=== PATIENT | male | born 1965 | race Caucasian/White ===

== ENCOUNTER 2023-10-09 08:08 | Day surgery (SDC) | payer OTHER ==
[~2023-10-09] VITALS: Ht 177.8 cm; Wt 77.2 kg
[2023-10-09 10:51] VITALS: BP 130/95
== END 2023-10-09 11:00 | disposition home or self-care (01) ==
LOC: ORSCMMR 08:08 → ORD 09:00 → ORSCMMR 09:00
PROC: 0DBN8ZX Excision of Sigmoid Colon, Via Natural or Artificial Opening Endoscopic, Diagnostic (ICD-10-PCS; principal; 2023-10-09)
PROC: 3E0H8KZ Introduction of Other Diagnostic Substance into Lower GI, Via Natural or Artificial Opening Endoscopic (ICD-10-PCS; principal; 2023-10-09)
PROC: 0DBH8ZX Excision of Cecum, Via Natural or Artificial Opening Endoscopic, Diagnostic (ICD-10-PCS; principal; 2023-10-09)
PROC: 0DBK8ZX Excision of Ascending Colon, Via Natural or Artificial Opening Endoscopic, Diagnostic (ICD-10-PCS; principal; 2023-10-09)
DX: K62.5 Hemorrhage of anus and rectum (principal); D12.5 Benign neoplasm of sigmoid colon; D12.0 Benign neoplasm of cecum; D12.2 Benign neoplasm of ascending colon

== ENCOUNTER 2024-05-20 07:50 | Day surgery (SDC) | payer OTHER ==
[2024-05-20] VITALS (8 sets, daily range): BP systolic 119–146; BP diastolic 73–107
[~2024-05-20] VITALS: Ht 177.8 cm; Wt 75.0 kg
[~2024-05-20 07:50] MED LIST: ACET500; ALLO100 PO; COLCHICINE0.6 MG PO; CeFAZolin Sodium 2,000 MG in NS 100 ML IV SCH; DICLOFENAC SOD100 GM; IBUP800 PO; LOSA50 PO; Lactated Ringer's 1,000 ML IV SCH; MULVITA PO
[2024-05-20] MEDS ORDERED: CeFAZolin Sodium 2,000 MG VIAL ONE (08:06)
[2024-05-20] MEDS ORDERED: COLCRYS0.6 M1 PO (08:14)
--- NOTE | 2024-05-20 08:26 | NUR ---
History, Chart, Medications and Allergies reviewed before start of procedure. Lungs clear T/O to Auscultation. Patient confirms NPO status and agrees with scheduled surgery. Pre-Op teaching done. Pt verbalizes understanding. Patient reports completing Chlorhexadine shower X2 prior to admission to hospital.
[2024-05-20] MEDS ORDERED: FentaNYL Citrate 50 MCG/ML 2 ML Injection ONE (08:52)
[2024-05-20] MEDS ORDERED: propofoL 20 ML IV ONE ×2 (08:52→10:12)
[2024-05-20] MEDS ORDERED: Bupivacaine 0.5% HCl 5 MG/ML 30MLVIAL ONE (09:13)
[2024-05-20] MEDS ORDERED: Ondansetron HCl 2 MG / ML 2ML Vial ONE (09:36)
[2024-05-20] MEDS ORDERED: Dexamethasone Sod Phos 10 MG/ML 1ML VIAL ONE (09:36)
[2024-05-20] MEDS ORDERED: ePHEDrine Sulfate 50 MG/ML 1ML Injection ONE (09:51)
[2024-05-20] MEDS ORDERED: HYDROcodone 5-APAP 325 TAB PO PRN (10:40)
--- NOTE | 2024-05-20 11:02 | NUR ---
PT TO DAY SURGERY FROM PACU WITH LEFT POSTERIOR SHOULDER EXICSION; BEDSIDE REPORT RECEIVED. PT IS AWAKE, ALERT AND ORIENTED; ABLE TO MOVE SELF IN BED. PT HAS PRESSURE DRESSING ON UPPER LEFT SHOULDER THAT IS C/D/I. PT HAS DAVY DRAIN THAT IS DRAINING SEROSANGUINEOUS DRAINAGE. PT DENIES PAIN. PO FLUIDS GIVEN.
--- NOTE | 2024-05-20 11:10 | NUR ---
PT TOLERATING PO FLUIDS WELL.
--- NOTE | 2024-05-20 11:21 | NUR ---
PT DECLINES ICE PACK, STATES HE HAS A LOT AT HOME. Discharge instructions reviewed with patient. Patient verbalizes understanding. Copy given to patient to take home. Pt educated on how to empty and measure PJ drain- paper given to record and bring to follow up appointment. Patient States Post-Procedure ride home has been arranged.
--- NOTE | 2024-05-20 11:37 | NUR ---
Patient up to Ambulate independently. Gait steady. Discharged via wheelchair to private car for ride home.
== END 2024-05-20 11:38 | disposition home or self-care (01) ==
LOC: ORSCMMR 07:50 → ORD 09:00 → ORSCMMR 09:00
PROVIDERS: Surgery
PROC: 0JBF0ZZ Excision of Left Upper Arm Subcutaneous Tissue and Fascia, Open Approach (ICD-10-PCS; principal; 2024-05-20 09:00)
DX: D21.12 Benign neoplasm of connective and other soft tissue of left upper limb, including shoulder (principal); G47.33 Obstructive sleep apnea (adult) (pediatric); I10 Essential (primary) hypertension; J45.909 Unspecified asthma, uncomplicated; M06.9 Rheumatoid arthritis, unspecified; Z79.899 Other long term (current) drug therapy
CPT/HCPCS: 88304; J0690; J1100; J2405; J2704; J3010; J7120